=== PATIENT | male | born 1955 | race Caucasian/White ===

== ENCOUNTER 2022-03-21 11:01 | Outpatient (CLI) | payer OTHER, SELFPAY ==
[2022-03-21 21:41] LABS: Chloride* 104 mmol/L (96-114)
[2022-03-21 21:42] LABS: Sodium* 140 mmol/L (135-149)
[2022-03-21 21:44] LABS: Creatinine* 0.9 mg/dL (0.5-1.5); Estimated Glomerular Filt Rate 94 ml/min; Potassium* 4.6 mmol/L (3.6-5.1)
[2022-03-21 21:45] LABS: Blood Urea Nitrogen* 17 mg/dL (7-30); Calcium* 9.1 mg/dL (8.4-10.6); Carbon Dioxide* 29 mmol/L (20-32); Glucose* 80 mg/dL (60-115)
== END 2022-03-21 11:02 | disposition home or self-care (01) ==
LOC: LKVREF 11:02
PROVIDERS: Visit Provider Emergency Medicine
DX: Z01.818 Encounter for other preprocedural examination (principal)
CPT/HCPCS: 80048

== ENCOUNTER 2022-04-02 09:45 | Outpatient (CLI) | payer OTHER, SELFPAY | END 2022-04-02 09:46 | disposition home or self-care (01) | PROVIDERS: PCP Emergency Medicine; Visit Provider Orthopaedic Surgery | DX: Z20.822 Contact with and (suspected) exposure to COVID-19 (principal); Z01.818 Encounter for other preprocedural examination | CPT/HCPCS: 36415; 86850; 86900; 86901 ==

== ENCOUNTER 2022-04-04 07:30 | Day surgery (SDC) | payer OTHER, SELFPAY ==
[2022-04-04] VITALS (21 sets, daily range): BP systolic 98–140; BP diastolic 71–90; PULSE 57–90; RESP 14–20; TEMP 36–36.7; O2SAT 93–100; BMI 30.8
[2022-04-04] MEDS: SODIUM CHLORIDE 0.9 % (FLUSH) 10 ML SYRINGE IVF (08:45)
[2022-04-04] MEDS: LACTATED RINGERS 1000 ML 1,000 ML 100 ML IV ×2 (08:45→10:23)
[2022-04-04] MEDS: ACETAMINOPHEN 500 MG TABLET 1000 MG PO ×3 (08:55→22:01)
[2022-04-04] MEDS: CELECOXIB 200 MG CAPSULE PO ×2 (08:55→21:24)
[2022-04-04] MEDS: OXYCODONE (CR) 10 MG TAB.ER.12H PO (08:55)
[2022-04-04] MEDS: fentaNYL 100 MCG/2 ML inj IVP (09:05)
[2022-04-04] MEDS: MIDAZOLAM HCL 1 MG/ML inj IVP (09:05)
--- NOTE | 2022-04-04 09:11 | SUR.PREOP ---
TIME?OUT:?0900, right hip PT/RN/MDA?VERIFICATION?OF?SURGICAL?SITE,?PROCEDURE,?AND?CONSENT OBTAINED?PRIOR?TO?INVASIVE?PROCEDURE.
--- NOTE | 2022-04-04 09:15 | CRLHL7_ITS ---
For Patients: As a result of the Cures Act, medical imaging exams and procedure reports are released immediately into your electronic medical record. You may view this report before your referring provider. If you have questions, please contact your health care provider. Indication: Hip replacement surgery Technique: AP hip fluoroscopic images. Fluoroscopy time 47.4 seconds. Findings/Impression: Hardware from a right total hip arthroplasty is in satisfactory position. Dictated by Carlos Alberto Holly MD @ 04/04/2022 11:59:13 AM (Electronically Signed)
--- NOTE | 2022-04-04 09:33 | W.PM.NB ---
Nerve Block Nerve Block Time Seen by Provider: 09:08 Date Seen: 04/04/22 Type of block requested by surgeon for post-operative analgesia: JOE/LFCN Side: right Time out performed: Yes Verification of patient name: Yes Verification of date of : Yes Site marking: site marked Name of person performing procedure: Hollis Continuous monitoring Was continuous monitoring of O2 sat, B/P, vehicle monitor technician, recorded every 15 minutes?: Yes Procedure Checklist: sterile prep, needles and gloves Ultrasound guided. Images saved: Yes Medications given in 5ml increments after negative aspiration: Ropivicaine %: 0.5 mL: 30 Needle gauge: 20 Decadron (mg): 10 Precedex (mcg): 25 Patient tolerated procedure well: Yes Additional comments: Needle noted below psoas tendon needle noted adjacent to LFCN Block Charges Block Charge (with Pro Fee): Other Periph Nerve Block Use of Ultrasound Machine for Block: Yes- US Guidance/pain block
[2022-04-04] MEDS: TRANEXAMIC ACID 100 MG/ML INJ 1000 MG IV (09:50)
[2022-04-04] MEDS: CEFAZOLIN 2 GM INJ IVP (09:55)
--- NOTE | 2022-04-04 11:38 | CRLHL7_ITS ---
For Patients: As a result of the Cures Act, medical imaging exams and procedure reports are released immediately into your electronic medical record. You may view this report before your referring provider. If you have questions, please contact your health care provider. Indication: POST OP RIGHT ABNER Technique: AP hip centered pelvis and lateral view right hip Findings/Impression: Hardware from a right total hip arthroplasty is in satisfactory position. Bone alignment is normal. No sign of acute fracture. Postop changes are within normal limits. Dictated by Carlos Alberto Holly MD @ 04/04/2022 1:11:31 PM (Electronically Signed)
--- NOTE | 2022-04-04 11:40 | P.ORPRC_ITS ---
Procedure Note Date of procedure: 04/04/22 Procedure: PREOPERATIVE DIAGNOSIS: Right hip osteoarthritis POSTOPERATIVE DIAGNOSIS: Right hip osteoarthritis NAME OF OPERATION: Right total hip arthroplasty SURGEON: Sylvain Armendariz MD TINWARE LITHOGRAPH PRESS OPERATOR: Simran Delacruz PA-C, STEPHAN Price IMPLANTS: 1. [employer] [place] # 52 sector ingrowth cup 2. 36 x 52 +4 neutral polyethylene 3. Actis # 7 standard collared ingrowth stem 4. 36 + 1.5 ceramic femoral head ANESTHESIA: General ESTIMATED BLOOD LOSS: 300 cc COMPLICATIONS: None SPECIMENS: None DRAINS: None PREOPERATIVE ANTIBIOTICS: Ancef 2 grams INDICATIONS: The patient is a 67-year-old with a longstanding history of severe, unrelenting right hip pain secondary to end-stage right hip osteoarthritis. Despite appropriate nonoperative management, including activity modification, use of an assist device, anti-inflammatories, [id number] pain medication, physical therapy and injections, they continue to have pain and disability. Operative intervention was offered. The risks, benefits and expected outcomes were discussed in detail. These included but were not limited to: Infection, bleeding, injury to blood vessel or nerve, venous thromboembolism. All questions were answered to their satisfaction. Use of an assistant sales center manager was necessary throughout the case for patient positioning and safety, soft tissue retraction and closure. PROCEDURE: The patient was placed supine on the [place] table. General anesthesia was administered. The assistant sales center manager made sure the patient was properly positioned. The right hip was prepped and draped in the usual sterile fashion. The image intensifier was brought in for a perfect AP pelvis and a perfect double tear drop AP view of each hip which were used for intraoperative templating with our fluoroscopic guide. An oblique incision was made 3 cm distal and 3 cm lateral to the anterior super ior iliac spine. The assistant sales center manager retracted the soft tissues to protect them. Subcutaneous dissection was taken with electrocautery to the superficial fascia. The fascia was divided in line with the incision. Blunt dissection was carried medially to the tensor fascia everton and sartorius interval. Deep dissection was carried with electrocautery. The circumflex vessels were cauterized and divided. The capsule was exposed and then divided in a T-fashion, tagged with #1 Ethibond sutures. Retractors were placed in the joint, held by the assistant sales center manager. The corkscrew was placed in the femoral head. The neck cut was made in the subcapital region. We made a second neck cut more distal. The napkin ring of bone was removed. The femoral head was removed intact. Acetabular retractors were placed, held by the assistant sales center manager. The labrum was sharply debrided. The capsule was released. The 43 mm reamer was used to the true medial wall. We then enlarged in 2 mm increments using the image intensifier for our reamer placement. We impacted the cup which had excellent purchase. We placed the hole eliminator and the polyethylene. Attention was then turned to the proximal femur. The limb was placed in 140 degrees of external rotation, maximum extension and adduction. A significant amount of time was spent releasing the capsule to allow us to deliver the femur into the wound and complete the femoral side safely. Retractors were held by the assistant sales center manager throughout the femoral preparation. The estimator paperboard boxes and canal finder were used. Broaches were used to a stable size. The calcar reamer was used. Trial components were placed. The hip was reduced and was found to be stable with appropriate soft tissue tension. Length and offset had been nicely restored using the image intensifier and our fluoroscopic guide. Trial components were removed. The stem was impacted. We placed the femoral head. Again, the hip was reduced and was found to be stable with appropriate soft tissue tension. Length and offset had been nicely restored. The assistant sales center manager did a three minute dilute Betadine solution soak. The assistant sales center manager irrigated the wound with 3 liters of normal saline via pulse lavage. The assistant sales center manager repaired the anterior capsule with a #1 Vicryl and our previously placed Ethibond sutures. The assistant sales center manager closed the fascia over the tensor fascia everton with a #1 PDO Stratafix, subcutaneous tissues with 2-0 Vicryl, skin with a running 3-0 Stratafix and glue. A dry dressing was applied by the assistant sales center manager. Sponge and needle counts were correct x 2. The patient tolerated the procedure well; there were no apparent complications. They were awakened and extubated in the operating room, sent to the Post-Anesthesia Care Unit in satisfactory condition. PLAN: 1. The patient will be mobilized with physical therapy, weight-bearing as tolerates 2. Xarelto x 5 days then aspirin x 30 days will be used for DVT prophylaxis 3. The patient will be discharged once medically appropriate
[2022-04-04] MEDS: fentaNYL 100 MCG/2 ML inj 50 MCG IVP ×2 (12:12→12:24)
--- NOTE | 2022-04-04 12:15 | W.ANESCHARGE ---
Anesthesia Charges Start Date/Time Anesthesia Start Date: 04/04/22 Anesthesia Start Time: 09:45 Stop Date/Time Anesthesia Stop Date: 04/04/22 Anesthesia Stop Time: 12:11 Summary Emergency: No
[2022-04-04] MEDS: HYDROmorphone 0.5 mg/0.5 ml inj IVP ×3 (12:36→14:07)
--- NOTE | 2022-04-04 12:38 | W.ANESCHARGE ---
Anesthesia Charges Start Date/Time Anesthesia Start Date: 04/04/22 Anesthesia Start Time: 09:45 Stop Date/Time Anesthesia Stop Date: 04/04/22 Anesthesia Stop Time: 12:11 Summary Emergency: No
[2022-04-04] MEDS: OXYCODONE 5 MG TABLET PO (13:15)
--- NOTE | 2022-04-04 15:04 | PC.NURSE ---
PATIENT ARRIVED TO FLOOR AROUND 1340, ALERT AND ORIENTED, REPORTING PAIN 7/10 IN RIGHT HIP, PUPILS NOTED TO BE PIN-POINT BUT REACTIVE TO LIGHT, LET PATIENT REST FOR A BITE STATED PAIN WAS MAYBE SLIGHTLY BETTER, ABLE TO FOLLOW COMMANDS AND IS ALERT AND ORIENTED, PRN DILAUDID GIVEN WITH RELIEF, DTR AT BEDSIDE AND SUPPORTIVE, SMALL [id number] SIZE DRAINAGE NOTED ON DRESSING OUTLINED TIME AND DATED, ACTIVE ICE TO SITE, PEDAL PULSES PRESENT, TOLERATING CRACKERS AND WATER, REPORTING SOME NAUSEA, DECLINING NEED FOR MEDICATION.
[2022-04-04] MEDS: LACTATED RINGERS 1000 ML 1,000 ML 75 ML IV (16:10)
[2022-04-04] MEDS: CEFAZOLIN 2 GM in 0.9 % SODIUM CHLORIDE Mini-bag 100 ML IVPB ×2 (16:10→23:58)
--- NOTE | 2022-04-04 16:21 | PM.IMHP1 ---
Hospitalist- H&P: HPI History of Present Illness Time Seen by Provider: 16:00 Date Seen: 04/04/22 Chief complaint: 04/04/22 Right Total Hip Narrative: Armand Lund is a 67 year old male underwent an elective right total hip arthroplasty for severe osteoarthritis. He is doing well postoperatively. He tells me that when he 1st woke up from anesthesia he had quite a bit of hip pain, but he got something for that and it is much better and tolerable now. Review of Systems Status of ROS: Reports: 10 or more systems reviewed and unremarkable except as noted in History and below [facility] Medical History (Updated 04/04/22 @ 14:39 by Jsamin Hope MD) Basal cell carcinoma GERD (gastroesophageal reflux disease) Pre-op exam Testicular mass (~07/24/16) Thyroid nodule (04/20/20) Surgical History (Updated 04/04/22 @ 14:39 by Jasmin Hope MD) H/O hernia repair H/O tooth extraction (~2017) History of gastric surgery Hx of colonoscopy S/P removal of thyroid nodule (05/11/20) S/P rotator cuff repair Family History (Updated 04/04/22 @ 14:41 by Jasmin Hope MD) Father Diabetes Mother Hypothyroid COPD (chronic obstructive pulmonary disease) Sister Depression Thyroid disease Social History (Updated 04/04/22 @ 16:24 by Jasmin Hope MD) Narrative: Lifelong nonsmoker. Drinks 2-3 sixteeen oz mugs of beer 2 to 3 times a week. His last drink was last Saturday. He denies recreational drug use. Wishes to be DNR DNI. Smoking Status: Never smoker How often do you have a drink containing alcohol: 2-4 times a month Alcohol type: beer How many standard drinks containing alcohol do you have on a typical day: 3 or 4 How often do you have six or more drinks on one occasion: Less than monthly AUDIT-C Alcohol total score: 4 Non-prescribed substance use: denies use Caffeine: Yes (soda, once a day) service: Yes Meds Home Medications and Allergies Allergies Allergy/AdvReac Type Severity Reaction Status Date / Time Penicillins Allergy Unknown Swelling Verified 04/04/22 08:02 of Lip/Tongue/Throat Exam Narrative: Exam Narrative: General: No acute distress. Awake alert oriented x3. HEENT: Normocephalic atraumatic, pupils equally round and reactive to light and accommodation. Oropharynx clear. Mucous membranes are moist. No cervical lymphadenopathy, thyromegaly or carotid bruits. No JVD. Cardiovascular: Regular rate and rhythm. No murmurs, gallops, or rubs. Chest: No increased work of breathing. Clear to auscultation bilaterally. No crackles or wheezes. Abdomen: Bowel sounds present. Soft, nondistended, nontender. No hepatosplenomegaly or masses. Extremities: Right hip bandage has a 2 mm diameter size dried blood spot in the center. This had already been marked with pen by the time I examined him. No edema, no cyanosis or clubbing. Skin: No jaundice, no pallor, no rashes. Const: Vital Signs, click to edit/add: Vital Signs - 24 hr 04/04/22 08:24 04/04/22 09:05 04/04/22 09:14 Temperature 98.0 F Pulse Rate 70 70 60 Pulse Rate [Left P ulse Oximeter] Respiratory Rate 20 16 16 Blood Pressure 114/82 112/73 115/79 Blood Pressure [Ri ght Arm] Pulse Oximetry 98 95 93 Oxygen Delivery Me thod Room Air Nasal Cannula Nasal Cannula Oxygen Flow Rate 3 3 04/04/22 09:20 04/04/22 12:10 04/04/22 12:51 Temperature 96.8 F L Pulse Rate 57 L 76 75 Pulse Rate [Left P ulse Oximeter] Respiratory Rate 14 16 14 Blood Pressure 106/71 135/90 H 128/77 Blood Pressure [Ri ght Arm] Pulse Oximetry 96 96 97 Oxygen Delivery Me thod Nasal Cannula Room Air Room Air Oxygen Flow Rate 3 04/04/22 12:56 04/04/22 12:20 04/04/22 12:25 Temperature 97.3 F L Pulse Rate 75 71 69 Pulse Rate [Left P ulse Oximeter] Respiratory Rate 14 16 16 Blood Pressure 129/78 140/85 H 133/84 Blood Pressure [Ri ght Arm] Pulse Oximetry 95 96 95 Oxygen Delivery Me thod Room Air Room Air Room Air Oxygen Flow Rate 04/04/22 12:30 04/04/22 12:35 04/04/22 12:40 Temperature Pulse Rate 79 71 67 Pulse Rate [Left P ulse Oximeter] Respiratory Rate 14 14 14 Blood Pressure 133/81 137/83 130/85 Blood Pressure [Ri ght Arm] Pulse Oximetry 94 93 97 Oxygen Delivery Me thod Room Air Room Air Room Air Oxygen Flow Rate 04/04/22 12:45 04/04/22 13:00 04/04/22 13:15 Temperature 97.1 F L Pulse Rate 73 78 84 Pulse Rate [Left P ulse Oximeter] Respiratory Rate 14 14 14 Blood Pressure 132/81 126/77 126/85 Blood Pressure [Ri ght Arm] Pulse Oximetry 96 93 100 Oxygen Delivery Me thod Room Air Nasal Cannula Nasal Cannula Oxygen Flow Rate 2 2 04/04/22 13:45 04/04/22 14:00 04/04/22 14:30 Temperature 97.6 F Pulse Rate 80 Pulse Rate [Left P ulse Oximeter] 78 90 Respiratory Rate 14 14 16 Blood Pressure Blood Pressure [Ri ght Arm] 124/78 135/77 120/84 Pulse Oximetry 96 98 Oxygen Delivery Me thod Nasal Cannula Nasal Cannula Nasal Cannula Oxygen Flow Rate 2 2 2 04/04/22 15:00 Temperature 97.8 F Pulse Rate Pulse Rate [Left P ulse Oximeter] 79 Respiratory Rate 16 Blood Pressure Blood Pressure [Ri ght Arm] Pulse Oximetry 99 Oxygen Delivery Me thod Nasal Cannula Oxygen Flow Rate 2
--- NOTE | 2022-04-04 16:27 | P.IMCN_ITS ---
Date of Consult Patient: Other Consult date: 04/04/22 Requesting Physician: Orthopedics Primary Care Provider: Livia Eli Consult Narrative Reason for consult: GERD Narrative: Armand Lund is a 67 year old male underwent an elective right total hip arthroplasty for severe osteoarthritis. He is doing well postoperatively. He tells me that when he 1st woke up from anesthesia he had quite a bit of hip pain, but he got something for that and it is much better and tolerable now. Review of Systems Status of ROS: Reports: 10 or more systems reviewed and unremarkable except as noted in History and below [facility] Medical History (Updated 04/04/22 @ 16:31 by Jasmin Hope MD) Basal cell carcinoma GERD (gastroesophageal reflux disease) Pre-op exam Testicular mass (~07/24/16) Thyroid nodule (04/20/20) Surgical History (Updated 04/04/22 @ 16:30 by Jasmin Hope MD) H/O hernia repair H/O tooth extraction (~2017) History of gastric surgery Hx of colonoscopy S/P removal of thyroid nodule (05/11/20) S/P rotator cuff repair S/P total right hip arthroplasty (04/04/22) Family History (Updated 04/04/22 @ 14:41 by Jasmin Hope MD) Father Diabetes Mother Hypothyroid COPD (chronic obstructive pulmonary disease) Sister Depression Thyroid disease Social History (Updated 04/04/22 @ 16:24 by Jasmin Hope MD) Narrative: Lifelong nonsmoker. Drinks 2-3 sixteeen oz mugs of beer 2 to 3 times a week. His last drink was last Saturday. He denies recreational drug use. Wishes to be DNR DNI. Smoking Status: Never smoker How often do you have a drink containing alcohol: 2-4 times a month Alcohol type: beer How many standard drinks containing alcohol do you have on a typical day: 3 or 4 How often do you have six or more drinks on one occasion: Less than monthly AUDIT-C Alcohol total score: 4 Non-prescribed substance use: denies use Caffeine: Yes (soda, once a day) service: Yes Meds Home Medications and Allergies Allergies Allergy/AdvReac Type Severity Reaction Status Date / Time Penicillins Allergy Unknown Swelling Verified 04/04/22 08:02 of Lip/Tongue/Throat Exam Narrative: Exam Narrative: General: No acute distress. Awake alert oriented x3. HEENT: Normocephalic atraumatic, pupils equally round and reactive to light and accommodation. Oropharynx clear. Mucous membranes are moist. No cervical lymphadenopathy, thyromegaly or carotid bruits. No JVD. Cardiovascular: Regular rate and rhythm. No murmurs, gallops, or rubs. Chest: No increased work of breathing. Clear to auscultation bilaterally. No crackles or wheezes. Abdomen: Bowel sounds present. Soft, nondistended, nontender. No hepatosplenomegaly or masses. Extremities: Right hip bandage has a 2 mm diameter size dried blood spot in the center. This had already been marked with pen by the time I examined him. No edema, no cyanosis or clubbing. Skin: No jaundice, no pallor, no rashes. Const: Vital Signs, click to edit/add: Vital Signs - 24 hr 04/04/22 08:24 04/04/22 09:05 04/04/22 09:14 Temperature 98.0 F Pulse Rate 70 70 60 Pulse Rate [Left P ulse Oximeter] Respiratory Rate 20 16 16 Blood Pressure 114/82 112/73 115/79 Blood Pressure [Ri ght Arm] Pulse Oximetry 98 95 93 Oxygen Delivery Me thod Room Air Nasal Cannula Nasal Cannula Oxygen Flow Rate 3 3 04/04/22 09:20 04/04/22 12:10 04/04/22 12:51 Temperature 96.8 F L Pulse Rate 57 L 76 75 Pulse Rate [Left P ulse Oximeter] Respiratory Rate 14 16 14 Blood Pressure 106/71 135/90 H 128/77 Blood Pressure [Ri ght Arm] Pulse Oximetry 96 96 97 Oxygen Delivery Me thod Nasal Cannula Room Air Room Air Oxygen Flow Rate 3 04/04/22 12:56 04/04/22 12:20 04/04/22 12:25 Temperature 97.3 F L Pulse Rate 75 71 69 Pulse Rate [Left P ulse Oximeter] Respiratory Rate 14 16 16 Blood Pressure 129/78 140/85 H 133/84 Blood Pressure [Ri ght Arm] Pulse Oximetry 95 96 95 Oxygen Delivery Me thod Room Air Room Air Room Air Oxygen Flow Rate 04/04/22 12:30 04/04/22 12:35 04/04/22 12:40 Temperature Pulse Rate 79 71 67 Pulse Rate [Left P ulse Oximeter] Respiratory Rate 14 14 14 Blood Pressure 133/81 137/83 130/85 Blood Pressure [Ri ght Arm] Pulse Oximetry 94 93 97 Oxygen Delivery Me thod Room Air Room Air Room Air Oxygen Flow Rate 04/04/22 12:45 04/04/22 13:00 04/04/22 13:15 Temperature 97.1 F L Pulse Rate 73 78 84 Pulse Rate [Left P ulse Oximeter] Respiratory Rate 14 14 14 Blood Pressure 132/81 126/77 126/85 Blood Pressure [Ri ght Arm] Pulse Oximetry 96 93 100 Oxygen Delivery Me thod Room Air Nasal Cannula Nasal Cannula Oxygen Flow Rate 2 2 04/04/22 13:45 04/04/22 14:00 04/04/22 14:30 Temperature 97.6 F Pulse Rate 80 Pulse Rate [Left P ulse Oximeter] 78 90 Respiratory Rate 14 14 16 Blood Pressure Blood Pressure [Ri ght Arm] 124/78 135/77 120/84 Pulse Oximetry 96 98 Oxygen Delivery Me thod Nasal Cannula Nasal Cannula Nasal Cannula Oxygen Flow Rate 2 2 2 04/04/22 15:00 Temperature 97.8 F Pulse Rate Pulse Rate [Left P ulse Oximeter] 79 Respiratory Rate 16 Blood Pressure Blood Pressure [Ri ght Arm] Pulse Oximetry 99 Oxygen Delivery Me thod Nasal Cannula Oxygen Flow Rate 2 Documenting provider has reviewed patient's vital signs: yes Labs Labs: Ordering Physician: Sylvain Armendariz M.D. Date of Service: 04/04/22 Procedure(s): XR hip RT 1V Accession Number(s): [id number] cc: Sylvain Armendariz M.D.; Livia Eli M.D.~ For Patients: As a result of the Century Cures Act, medical imaging exams and procedure reports are released immediately into your electronic medical record. You may view this report before your referring provider. If you have questions, please contact your health care provider. Indication: Hip replacement surgery Technique: AP hip fluoroscopic images. Fluoroscopy time 47.4 seconds. Findings/Impression: Hardware from a right total hip arthroplasty is in satisfactory position. Dictated by Carlos Alberto Holly MD @ 04/04/2022 11:59:13 AM (Electronically Signed) Ordering Physician: Sylvain Armendariz M.D. Date of Service: 04/04/22 Procedure(s): XR hip RT post op Accession Number(s): [id number] cc: Sylvain Armendariz M.D.; Livia Eli M.D.~ For Patients: As a result of the Cures Act, medical imaging exams and procedure reports are released immediately into your electronic medical record. You may view this report before your referring provider. If you have questions, please contact your health care provider. Indication: POST OP RIGHT ABENR Technique: AP hip centered pelvis and lateral view right hip Findings/Impression: Hardware from a right total hip arthroplasty is in satisfactory position. Bone alignment is normal. No sign of acute fracture. Postop changes are within normal limits. Dictated by Carlos Alberto Holly MD @ 04/04/2022 1:11:31 PM (Electronically Signed) Assessment and Plan Assessment and plan (1) S/P total right hip arthroplasty: Status: Acute (2) Osteoarthritis of right hip: Problem comment: End-stage Status: Acute (3) Prediabetes: Problem comment: Does not take any medications for this. Status: Chronic (4) GERD (gastroesophageal reflux disease): Status: Chronic Plan 59-year-old male who underwent an elective right total hip arthroplasty today. He is doing well postoperatively. Conditions of prediabetes and GERD are stable and he takes no medications as an outpatient. Recommend usual VTE prophylaxis of 5 days of Xarelto followed by twice a day baby aspirin. Thank you for the consult.
[2022-04-04] MEDS: 0.9 % SODIUM CHLORIDE 500 ML IV (17:50)
[2022-04-04] MEDS: ONDANSETRON 2 MG/ML inj 4 MG IVP (18:39)
[2022-04-04] MEDS: SENNOSIDES 1 TAB TABLET 2 TAB PO (21:24)
--- NOTE | 2022-04-04 22:53 | PC.NURSE ---
Shift note: Pt is doing well post operatively. Able to ambulate with assist of 1 to and from BR with walker and GB. Tolerating regular diet very well without any complication. Pain was not able to make urine 4 hours after admission to the unit, N/S 500ml bolus given, charge-nurse informed. Did complained of dizziness and and nausea the first time he ambulated to and from the BR. This was effectively managed with rest and Ondansetron. Pt eventually produced 350 ml of clear carla colored urine. Pt is able to tolerate pain very well. Pain level has been rated at 2 and refused PRN pain medications. Scheduled pain med given. Dressing appears clean and dry. CMS to the right leg intact. Pt is able to wiggle toes and slowly move the right leg.
[2022-04-05 03:00] VITALS: BP 108/67; PULSE 73; RESP 18; TEMP 36.6; O2SAT 100
[2022-04-05] MEDS: ACETAMINOPHEN 500 MG TABLET 1000 MG PO ×2 (03:39→10:49)
[2022-04-05] MEDS: OXYCODONE 5 MG TABLET PO ×3 (03:40→08:24)
--- NOTE | 2022-04-05 05:03 | PC.NURSE ---
[id number] Pt rested well during night, up to br with walker, GB, SBA, tolerated very well. pain controlled with oral schedules and prn medications. Ice to R hip throughout shift. antonia N/V, chest pain, headache or sob.
[2022-04-05 07:00] VITALS: BP 112/69; PULSE 82; RESP 18; TEMP 36.9; O2SAT 99
[2022-04-05 07:02] LABS: Basophils Absolute Auto 0.01 K/uL (0.00-0.30); Basophils Percent Auto 0.1 % (0.0-3.0); Hematocrit 35.9 % (37.0-53.0); Hemoglobin* 12.4 gm/dL (13.5-17.5); Immature Granulocytes Abs Auto 0.01 K/uL (0.00-0.30); Immature Granulocytes Pct Auto 0.1 %; Lymphocytes Percent Auto 14.3 % (20-44); Mean Corpuscular HGB Conc 35 gm/dL (32-36); Mean Corpuscular Hemoglobin 33 pg (26-34); Mean Corpuscular Volume 94 fL (80-100); Monocytes Percent Auto 10.5 % (0.0-11.0); Platelet Count* 190 K/uL (140-440); RDW Coefficient of Variation % 11.9 % (11.5-15.5); Red Blood Count 3.82 m/uL (4.30-5.90); White Blood Count* 10.58 K/uL (4.50-11.00)
[2022-04-05 07:15] LABS: Potassium* 4.3 mmol/L (3.6-5.1); Sodium* 136 mmol/L (135-149)
[2022-04-05 07:18] LABS: Creatinine* 0.8 mg/dL (0.5-1.5); Estimated Glomerular Filt Rate 96 ml/min
[2022-04-05 07:19] LABS: Blood Urea Nitrogen* 15 mg/dL (7-30)
[2022-04-05 07:23] LABS: Slide Review Reflex No
[2022-04-05] MEDS: CEFAZOLIN 2 GM in 0.9 % SODIUM CHLORIDE Mini-bag 100 ML IVPB (07:43)
--- NOTE | 2022-04-05 08:12 | PM.ORPN ---
Subjective Subjective Time Seen by Provider: 07:40 Date Seen: 04/05/22 Principal diagnosis: Status post right hip replacement Interval history: Armand is comfortable this morning. He states his pain is much improved in comparison to prior to surgery. He states the hip is sore. He has had a vomiting episode. Ortho Exam Narrative Exam Narrative: Alert and oriented x3. Patient is in no acute distress. Converses without labored breathing. Hearing is grossly intact. Emanation of the right hip shows mild erythema from the ice pack. Mild soft tissue edema right hip and back. Good quad function. CMS intact right lower extremity. Bilateral calves are soft and nontender. Const Vital Signs, click to edit/add: Vital Signs - 24 hr 04/04/22 08:24 04/04/22 09:05 04/04/22 09:14 Temperature 98.0 F Pulse Rate 70 70 60 Pulse Rate [Left Pulse Oximeter] Pulse Rate [Pulse Oximeter] Respiratory Rate 20 16 16 Blood Pressure 114/82 112/73 115/79 Blood Pressure [Right Arm] Pulse Oximetry 98 95 93 Oxygen Delivery Method Room Air Nasal Cannula Nasal Cannula Oxygen Flow Rate 3 3 04/04/22 09:20 04/04/22 12:10 04/04/22 12:51 Temperature 96.8 F L Pulse Rate 57 L 76 75 Pulse Rate [Left Pulse Oximeter] Pulse Rate [Pulse Oximeter] Respiratory Rate 14 16 14 Blood Pressure 106/71 135/90 H 128/77 Blood Pressure [Right Arm] Pulse Oximetry 96 96 97 Oxygen Delivery Method Nasal Cannula Room Air Room Air Oxygen Flow Rate 3 04/04/22 12:56 04/04/22 12:20 04/04/22 12:25 Temperature 97.3 F L Pulse Rate 75 71 69 Pulse Rate [Left Pulse Oximeter] Pulse Rate [Pulse Oximeter] Respiratory Rate 14 16 16 Blood Pressure 129/78 140/85 H 133/84 Blood Pressure [Right Arm] Pulse Oximetry 95 96 95 Oxygen Delivery Method Room Air Room Air Room Air Oxygen Flow Rate 04/04/22 12:30 04/04/22 12:35 04/04/22 12:40 Temperature Pulse Rate 79 71 67 Pulse Rate [Left Pulse Oximeter] Pulse Rate [Pulse Oximeter] Respiratory Rate 14 14 14 Blood Pressure 133/81 137/83 130/85 Blood Pressure [Right Arm] Pulse Oximetry 94 93 97 Oxygen Delivery Method Room Air Room Air Room Air Oxygen Flow Rate 04/04/22 12:45 04/04/22 13:00 04/04/22 13:15 Temperature 97.1 F L Pulse Rate 73 78 84 Pulse Rate [Left Pulse Oximeter] Pulse Rate [Pulse Oximeter] Respiratory Rate 14 14 14 Blood Pressure 132/81 126/77 126/85 Blood Pressure [Right Arm] Pulse Oximetry 96 93 100 Oxygen Delivery Method Room Air Nasal Cannula Nasal Cannula Oxygen Flow Rate 2 2 04/04/22 13:45 04/04/22 14:00 04/04/22 14:30 Temperature 97.6 F Pulse Rate 80 Pulse Rate [Left Pulse Oximeter] 78 90 Pulse Rate [Pulse Oximeter] Respiratory Rate 14 14 16 Blood Pressure Blood Pressure [Right Arm] 124/78 135/77 120/84 Pulse Oximetry 96 98 Oxygen Delivery Method Nasal Cannula Nasal Cannula Nasal Cannula Oxygen Flow Rate 2 2 2 04/04/22 15:00 04/04/22 19:00 04/04/22 23:00 Temperature 97.8 F 97.5 F L 97.9 F Pulse Rate Pulse Rate [Left Pulse Oximeter] 79 81 85 Pulse Rate [Pulse Oximeter] Respiratory Rate 16 16 16 Blood Pressure Blood Pressure [Right Arm] 106/73 98/71 Pulse Oximetry 99 99 96 Oxygen Delivery Method Nasal Cannula Nasal Cannula Room Air Oxygen Flow Rate 2 0 04/05/22 03:00 Temperature 97.9 F Pulse Rate Pulse Rate [Left Pulse Oximeter] Pulse Rate [Pulse Oximeter] 73 Respiratory Rate 18 Blood Pressure Blood Pressure [Right Arm] 108/67 Pulse Oximetry 100 Oxygen Delivery Method Room Air Oxygen Flow Rate 0 Assessment and Plan Assessment and plan (1) S/P total right hip arthroplasty: Problem details: 04/04/2022 Status: Acute Assessment and Plan: Plan for discharge is today to home if they meet discharge criteria. DVT prophylaxis includes Xarelto 10 mg daily for total of 5 days, then aspirin 81 mg twice daily for 30 days, Nilesh stockings x1 month may remove for 1 hr per day, frequent ambulation Remove dressing 1 week. Observe wound and phone Orthopedics with any questions or concerns Use Ice on operative hip unrestricted. Return to clinic in 1 week with PA for a wound check Return to clinic in [address] Armendariz Minimize narcotic use. Wean off and discontinue soon as possible. Activities as tolerated. No strenuous activity. Attend outpt PT (2) Osteoarthritis of right hip: Problem details: End-stage Status: Acute (3) Prediabetes: Problem details: Does not take any medications for this. Status: Chronic (4) GERD (gastroesophageal reflux disease): Status: Chronic
[2022-04-05] MEDS: CELECOXIB 200 MG CAPSULE PO (08:23)
[2022-04-05] MEDS: SENNOSIDES 1 TAB TABLET 2 TAB PO (08:23)
[2022-04-05] MEDS: RIVAROXABAN 10 MG TABLET PO (08:24)
--- NOTE | 2022-04-05 11:25 | PC.NURSE ---
PATIENT DISCHARGED TO HOME WITH DTR, UP SBA WITH WALKER AND BELT TOLERATING WELL, RATING PAIN IN RIGHT HIP / BEING MANAGED WITH SCHEDULED TYLENOL AND PRN OXYCODONE, NAUSEA WITH EMESIS NOTED THIS MORNING, PATIENT DECLINED NEED FOR INTERVENTION I FEEL BETTER AFTER THROWING UP, HAS SINCE HAD NO NAUSEA OR EMESIS, TOLERATING REGULAR DIET, DRESSING TO RIGHT HIP INTACT WITH OLD DRAINAGE, PATIENT AND DTR VERBALIZED UNDERSTANDING OF DISCHARGE INFORMATION AND HAD NO FURTHER QUESTIONS AT THIS TIME, IV REMOVED, ALL BELONGINGS SENT WITH PATIENT, PATIENT LEFT VIA WHEELCHAIR AROUND 1115.
== END 2022-04-05 11:15 | disposition home or self-care (01) ==
LOC: OR 07:32 → MEDSURG 07:48
PROVIDERS: PCP Emergency Medicine; Visit Provider Orthopaedic Surgery
PROC: (CPT 27130; principal; 2022-04-04 09:15)
DX: M16.11 Unilateral primary osteoarthritis, right hip (principal); M25.551 Pain in right hip; R73.03 Prediabetes; K21.9 Gastro-esophageal reflux disease without esophagitis
CPT/HCPCS: 27130; 01214; 36415; 64450; 73501; 76000; 76942; 82565; 84132; 84295; 84520; 85025; 97116; 97161; 97165; 97535; A9270; C1776; J0690; J1100; J1170; J2250; J2405; J2704; J2710; J2795; J3010; J7120

== ENCOUNTER 2022-05-03 10:30 | Outpatient (RCR) | payer OTHER, SELFPAY ==
--- NOTE | 2022-03-27 13:21 | PT.OPE ---
PT Gene Outpatient Eval PT [facility]K Outpatient Eval Start: 03/27/22 10:05 Freq: Status: Active Protocol: Document 03/27/22 12:54 KN (Rec: 03/27/22 13:17 GER Desktop) E-signed By Ant Alba, PT, ATC Physical Therapy Outpatient Evaluation Insurance Information Insurance Name Other; See Comments Insurance Information/Comments Medicare Advantage [employer] Medical Diagnosis M16.11 Unilateral primary osteoarthritis , right hip Treating Diagnosis R hip pain Referring MD Armendariz Subjective Subjective Chronic history of R hip pain and reduced mobility. Two previous cortisone shots attempted, most recent . Zero relief from the last injection. Pain inhibits ability for walking distances > 500 feet, sustained standing > 10 min.s or sitting > 30 min.s. Scheduled for R ABNER- anterior approach 04/04/22. Lives by himself in a split entry home. Has his children available to provide assistance following the surgery. Pain Comments -12/16 most of the time Date of Last Physician Visit 02/28/22 Current Work Status Employment Specialist/Program Manager Occupation frontload driver Precautions Weight Bearing Status Full Weight Bearing Therapy Limitations/Systems Review Not Limited Objective Range of Motion PROM: FLEX R 45, L 50 ABD R 15, L 20 EXT R 5, L 10 ER R 30, L 40 IR R 10, L 20 Strength R hip 4-/5 L hip 5-/5 Balance & Gait Gait pattern exhibits an extreme limp with decreased WB 'ing time and stride length through the R leg. Absent hip or trunk rotation and minimal UE swing Posture Asymmetric standing posture, increased weight through L leg . Assessment Assessment/Impression Partick is a pleasant 66 year old male referred to PT today for a pre-op ABNER evaluation. The surgery is scheduled for 04/04/22 and he appears prepared for the event. He comprehended and demonstrated good ability with the ABNER ex.s , was able to walk safely and correctly using the wheeled walker and used correct sequencing with stair ascent and descent. Primary Functional Limitations Standing, walking, sitting, transfers, sleeping Plan of Care Rehabilitation Potential Good Physical Therapy Goals 1. To demonstrate correct performance with ABNER-anterior approach exercises for active range and strengthening. 2. To demonstarte safe and correct utilization of front wheeled walker. 3. Correct sequencing with stair ascent and descent. Coordination/Communication With Referral Source Treatment Plan/Direct Interventions Therapeutic Exercises Frequency/Duration One pre-op visit. Re-evaluation following ABNER-R and post op POC development. 1 -2x per week for 6-8 weeks Patient Will Be Discharged From Therapy Independent w/HEP, Independently Progressing Evaluation Billing Untimed Code Treatment Minutes 30 PT Eval No Charge No Complexity Low Certification Information Initial Certification Date 03/27/22 Ending Certification Date 06/25/22 Provider Signature Shows Agreement With POC & Medical Necessity Physician Signature & Date Requested Please Sign/Date Here Physician Comment/Change : Physician NPI Number #
== END 2022-10-25 23:59 | disposition home or self-care (01) ==
PROVIDERS: Visit Provider Physician Assistant
DX: M16.11 Unilateral primary osteoarthritis, right hip (principal); Z96.649 Presence of unspecified artificial hip joint; M25.551 Pain in right hip; Z51.89 Encounter for other specified aftercare
CPT/HCPCS: 97012; 97110; 97140; 97161; 97164; 97530

== ENCOUNTER 2022-07-18 10:50 | Outpatient (CLI) | payer OTHER, SELFPAY | END 2022-07-18 10:51 | disposition home or self-care (01) | LOC: NFLDREF 07-20 00:29 | PROVIDERS: PCP Emergency Medicine; Referring Provider Emergency Medicine; Visit Provider Emergency Medicine | DX: Z00.00 Encounter for general adult medical examination without abnormal findings (principal); R73.03 Prediabetes; Z12.5 Encounter for screening for malignant neoplasm of prostate; Z13.6 Encounter for screening for cardiovascular disorders | CPT/HCPCS: 80053; 80061; 84153 ==

== ENCOUNTER 2023-09-19 08:46 | Outpatient (CLI) | payer OTHER, SELFPAY | END 2023-09-19 08:47 | disposition home or self-care (01) | PROVIDERS: PCP Emergency Medicine; Visit Provider Emergency Medicine | DX: R73.03 Prediabetes (principal); Z12.5 Encounter for screening for malignant neoplasm of prostate; Z68.33 Body mass index [BMI] 33.0-33.9, adult | CPT/HCPCS: 80048; 84443; G0103 ==

== ENCOUNTER 2024-09-24 09:53 | Outpatient (CLI) | payer OTHER, SELFPAY ==
--- OUTSIDE RECORDS SUMMARY | 2023-01-23 03:31 | XMS_ITS | Continuity of Care Document ---
Author Organization [facility] Address [address] [address] [place] [address] Phone Care Team Providers Care Rail Detector Car Operator Name Role Phone Davian Yoder CRNA Unavailable Unavailabl e Allergies, Adverse Reactions, Alerts Substance Reaction Status Criticality Penicillins Swelling Active No Information PENICILLIN Angioedema Resolved No Information Medications Medication Instructions Dosage Effective Dates (start - stop) Status Comments pantoprazole 40 mg tablet,delayed release take 1 tablet by ORAL route 2 times every day 40 MG - No Longer Active office visit for refills naproxen 500 mg tablet take 1 tablet by oral route 2 times every day with food 500 MG - No Longer Active cyclobenzaprine 10 mg tablet take 1 tablet by oral route 3 times every day 10 MG - No Longer Active Procedures Procedure Date Colonoscopy Flex; W/bx 1/mx Level Iv-surg Path Gross/micro 23 Ugi Endo; W/bx 1/mx Level Iv-surg Path Gross/micro 20 Virtual Visit E&m Estab Low-mod - Mi n Offic/outpt E&m Estab Mod-hi 2 18 Colonoscopy Flex; Dx (sep Pro) 18 Ugi Endo; W/bx 1/mx Level Iv-surg Path Gross/micro 18 Ugi Endo; W/bx 1/mx Level Iv-surg Path Gross/micro 18 Ugi Endo; W/bx 1/mx Colonosocpy Flex; Remov L Ugi Endo; Dx W/wo Collec Advance Directives Directive Yes / No Effective Date File Name No Information Encounters Encounter Description Practice Location Reason(s) For Visit Diagnoses Date Provider Providers Copied on Encounter [facility], [address] [address], [place], [id number], [place] tel:[phone] [facility] No Information 3 Paresh Marcelo. [address] [facility], [address], [id number], [place]. tel:[phone] Referring Provider: Rocio Villalobos, [address], [address]. tel:[phone] [facility], [address] [address], [place], [id number], [place] tel:[phone] [facility] GI Symptoms or Concerns (chief complaint) Screening ColonoscopyCo lorectal polypsDiverti cula of colonBenign neoplasm of transverse colonPersonal history of colonic polypsEncount er for screening for malignant neoplasm of colonDvrtclos of lg int w/o perforation or abscess w/o bleeding 3 Didier Chan. [address] [facility], [facility] [address], [place], [id number], [place]. tel:[phone] Referring Provider: Referral Self, USE FOR SELF REFERRALS. [facility], [address] [address], [place], [id number], [place] tel:[phone] [facility] No Information 3 Bakari Whittaker. [address] [facility], [facility] [address], [place], [id number], [place]. tel:[phone] [facility], [address] [address], [place], [id number], [place] tel:[phone] [facility] No Information 1 Jessica Matute. [address] [place] [address], [id number], . tel:[phone] [facility], [address] [address], [place], [id number], [place] tel:[phone] [facility] Diaphragmatic hernia without obstruction or gangreneGastr o-esophageal reflux disease without esophagitisOt her specified postprocedura l statesGastro- esophageal reflux disease with esophagitisGa stro-esophage al reflux disease with esophagitisDi aphragmatic hernia without obstruction or gangrene 0 Edinson Duncan. [address] [place] [address], [id number], [place]. tel:[phone] Referring Provider: Referral Self, USE FOR SELF REFERRALS. Virtual Visit E&m Estab Low-mod 15-24 Min [facility], [address] [address], [place], [id number], [place] tel:[phone] [facility] Gastroesophag eal reflux disease, esophagitis presence not specified 0 Jessica Matute. [address] [place] [address], [id number], [place]. tel:[phone] Referring Provider: Referral Self, USE FOR SELF REFERRALS. [facility], [address] [address], [place], [id number], [place] tel:[phone] [facility] No Information 0 Edstrom ABEL Conner. [address] [place] [address], [id number], [place]. tel:[phone] Offic/outpt E&m Estab Mod-hi 2 [facility], [address] [address], [place], [id number], [place] tel:[phone] [facility] GI Symptoms or Concerns (chief complaint) GERD with esophagitisHi story of Sandi fundoplicatio nHiatal hernia 8 No Information Referring Provider: Referral Self, USE FOR SELF REFERRALS. [facility], [address] [address], [place], [id number], [place] tel:[phone] [facility] GERD with esophagitisEs ophagitisScre ening ColonoscopyPe rsonal history of colonic polypsEsophag eal obstructionEn counter for screening for malignant neoplasm of colon 8 Stephen Hunt. [address] [facility], [facility] [address], [place], [place], [id number], [place]. tel:[phone] Referring Provider: Referral Self, USE FOR SELF REFERRALS. [facility], [address] [address], [place], [id number], [place] tel:[phone] [facility] Reflux esophagitisHi atal herniaHistory of Sandi fundoplicatio nGastro-esoph ageal reflux disease with esophagitisOt her specified postprocedura l statesDiaphra gmatic hernia without obstruction or gangrene 8 Jefe Lucero. [address] [facility], [facility] [address], [place], [place], [id number], [place]. tel:[phone] Referring Provider: Jeannie Mcleod, [address], [place], [address]. tel:[phone] [facility], [address] [address], [place], [id number], [place] tel:[phone] [facility] Gastroesophag eal Reflux 8200 6 No Information [facility], [address] [address], [place], [id number], [place] tel:[phone] [facility] 6200 6 No Information Family History Family Member Type Diagnosis Age At Onset Father Problem (finding) Mother Problem (finding) Sister Problem (finding) Thyroid disorder Mother Problem (finding) Thyroid disorder Daughter Problem (finding) Alive and well Son Problem (finding) GERD Mother Problem (finding) alcoholism Brother Problem (finding) Alive and well Immunizations Vaccine Date Status Comments tetanus toxoid, reduced diphtheria toxoid, and acellular pertussis vaccine, adsorbed administered Note: [facility] b i-directional interface ; Source: Other Registry Pneumococcal conjugate vacci ne 20-valent (PCV20), polysaccharide [id number] conjugate, adjuvant, preservative free administered Note: [facility] bi-direct ional interface ; Source: Other Registry SARS-COV-2 (COVID-19) vaccin e, mRNA, spike protein, LNP, preservative free, 100 mcg/0.5mL dose or 50 mcg/0.25mL dose administered Note: [facility] bi -directional interface ; Source: Other Registry SARS-COV-2 (COVID-19) vaccin e, mRNA, spike protein, LNP, preservative free, 100 mcg/0.5mL dose or 50 mcg/0.25mL dose administered Note: [facility] bi -directional interface ; Source: Other Registry influenza, high-dose seasona l, quadrivalent, 0.7mL dose, preservative free administered Note: [facility] bi-direct ional interface ; Source: Other Registry tetanus toxoid, reduced diphtheria toxoid, and acellular pertussis vaccine, adsorbed administered Note: [facility] b i-directional interface ; Source: Other Registry Payers Payer name Insurance type Covered green party ID Authoriza tion(s) Cici Conrad Choice 16 [id number] Social History Type Description Quantity Date Captured Comments Sex Male Smoking Status No Information Chief Complaint And Reason For Visit No Information Reason For Referral Reason For Referral No Information Plan Of Treatment Date Type Action Status Referral Ordered: Xray Esophagus (Barium Swallow Study) Appointment date/timeframe: 02/21/2018 ordered Referral Ordered: referred to Dr Rogelio Alba or Dr Bozena Hunter GERD, previous sandi, hiatal hernia Appointment date/timeframe: 03/12/2018 ordered Referral Ordered: follow-up visit with esophageal clinic or my clinic ordered Referral Ordered: EGD Appointment date/timeframe: 12/18/2017 ordered History Of Present Illness Encounter Date Complaint History Of Prese nt Illness GI Symptoms or Concerns GI Symptoms or Concerns Armand Lund is a 62-year-old male who presents to clinic today to follow up from repeat endoscopies. The patient has a history of gastroesophageal reflux disease and underwent a Sandi fundoplication in [place] in 2013. We had seen the patient back in November 2005 for evaluation of heartburn. Two tongues of possible Barfield's were seen at that time, but the stomach and duodenum were normal appearing. Biopsies of the esophagus revealed squamous epithelium with mild reactive epithelial changes and cardiac-type glandular mucosa, but not goblet cells or Barfield's esophagus was seen.The patient returned for an upper endoscopy in October 2017. At that time, he had been experiencing more heartburn [id number] of the last 6 months.The patient states that he had his Sandi performed in [place] because of progressive nocturnal regurgitation. This completely resolved after the Sandi and he was able to be off of all PPI medications. He did well for about 2 years, bu Functional Status Date Functional Assessmen t No Information Medications Administered Medication Instructions Dosage Effective Dates (start - stop) Status Comments No Drug Therapy Prescribed Instructions Date Instruction Additional Infor mation Diverticulosis/Diverticulitis Re lated to Colorectal polyps Colon Polyps Related to Color ectal polyps Hemorrhoids Related to Color ectal polyps High Fiber Diet Related to Color ectal polyps Gastroesophageal Reflux Disease Related to GERD with esophagitis Hiatal Hernia Related to GERD with esophagitis Colon Cancer Prevention Related to Esophagitis Diverticulosis/Diverticulitis Re lated to Esophagitis Hemorrhoids Related to Esoph agitis Assessments Type Assessment Date No Information Patient Care Teams Name Effective Dates (start - stop) Status Members No Information
[2024-09-24 10:43] VITALS: BP 136/76; PULSE 93; RESP 16
--- NOTE | 2024-09-24 12:05 | W.PM.STED ---
Stress Test Note Date Date Seen: 09/24/24 Date of test: 09/24/24 Providers Primary care provider: Vazquez Gant Stress test physician: Leena Becerra Stress Test Note Stress test ordered: Exercise Stress Test Indication for test: Dyspnea Results discussion: Resting EKG: Sinus rhythm, 72 beats per minute. Isolated flipped T-waves lead V1 and lead [address] segment changes. Resting blood pressure: 120/82 Stress test: Patient consented on standard [place] protocol exercise treadmill stress test. Patient was able to exercised to 9 minutes 29 seconds stopping due to being short of breath/meeting exercise tolerance and achieving appropriate heart rate. Patient exercised equivalent of 10.9 Mets. Had a maximum heart rate of 154 beats per minute which was 120% of a calculated target heart rate of 128. He had a rate pressure product of 23,408. There was no arrhythmia, no diagnostic EKG changes indicative of ischemia. Patient had appropriate heart rate recovery, did not seem to be dyspneic outside anticipated level of exercise. Impression: Subjectively negative, objectively negative treadmill stress test. Follow up suggested: Patient is discharged to home, he will follow up with his primary to discuss further options or workup.
--- OUTSIDE RECORDS SUMMARY | 2024-09-25 00:58 | XMS_ITS | Encounter Summary ---
Author Organization [facility] Address [address] [place] [address]. [place] [address] Care Team Providers Care Automatic Vulcanizing Operator Name Role Phone Leslie James MD Unavailable [phone] Wendy Ariza APRN BREEDING TECHNICIAN Unavailable [phone] Wendy Ariza APRN BREEDING TECHNICIAN Primary Care Provider + Coming Lauren Granados MD Unavailable [phone] Coming Lauren Granados MD Unavailable [phone] Wendy Ariza APRN BREEDING TECHNICIAN Unavailable Coming Lauren Granados MD Unavailable [phone] Reason for Visit * Reason Onset Date Comments Refill Request 10/05/2020 Encounter Details Date Type Department Care Team (Late st Contact Info) Description 10/05/2020 MyC Refill [facility] [address] [place] [phone] [place] [address] [place], [place] [id number] Refill Request Social History Tobacco Use Types Packs/Day Years Used Date Smoking Tobacco: Never Smokeless Tobacco: Never Alcohol Use Standard Drinks/Week Comments Yes 2 (1 standard drink = 0.6 oz pur e alcohol) 2-3 beers weekly. varies AUDIT-C Answer Date Recorded Q1: How often do you have a drink containing alc ohol? 2-4 times a month 12/17/2018 Q2: How many drinks containi ng alcohol do you have on a typical day when you are drinking? 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 No / Unsure 09/12/2020 4:11 PM CDT documented as of this encounter Miscellaneous Notes * Telephone Encounter - Wendy Ariza APRN CNP - 10/06/2020 8:56 AM CDT Looks like you saw patient for this. Thank you Wendy Ariza APRN CNP on 10/06/2020 at 8:56 AM * Telephone Encounter - Tracey Ramires RN - 10/05/2020 2:53 PM CDT Routing refill request to provider for review/approval because: Drug not on the [facility] refill protocol Tracey Ramires RN [facility] -- Triage Nurse documented in this encounter Plan of Treatment Not on file documented as of this encounter Visit Diagnoses Diagnosis Pulled muscle Unspecified site of sprain and strain documented in this encounter Care Teams Automatic Vulcanizing Operator Relationship Specialty Start Date End Date Wendy Ariza APRN BREEDING TECHNICIAN [address] [place] [id number] PCP - General Family Medicine 07/06/20 Leslie James MD [facility] [address] [place] [address] Assigned Surgical Provider 04/24/20 Wendy Ariza APRN BREEDING TECHNICIAN [address] [place] [phone] Assigned PCP 05/15/20 11/03/21 [place] [address] [place], [place] [id number] Assigned PCP 03/24/22 06/01/22 [place] [address] [place] [address] Assigned PCP 11/04/21 03/16/22 Wendy Ariza APRN BREEDING TECHNICIAN [address] [place] [phone] Assigned PCP 06/02/22 01/25/23 [place] [address] [place] [address] Assigned PCP 01/26/23 10/28/23 documented as of this encounter
--- OUTSIDE RECORDS SUMMARY | 2024-09-25 00:58 | XMS_ITS | Encounter Summary ---
Author Organization [place] Address [facility]ly [facility], later [facility] [place] [address] Care Team Providers Care Audit Practice Intern Name Role Phone Jeannie Almonte PA-C Primary Care Provid er Jeannie Almonte PA-C Unavailable + [phone] Leslie James MD Unavailable [phone] Angelina Gutierrez PA-C Primary Care Provider [phone] Angelina Gutierrez PA-C Primary Care Provider [phone] Wendy Ariza APRN, CNP Unavailable Wendy Ariza APRN, CNP Primary Care Provider + Coming Lauren Granados MD Unavailable [phone]- [phone] Coming Lauren Granados MD Unavailable [phone] Wendy Ariza APRN, CNP Unavailable [phone] Coming Lauren Granados MD Unavailable [phone]- [phone] Reason for Visit * Reason Onset Date Comments Pt. Information/instruction 11/26/2015 Encounter Details Date Type Department Care Team (Late st Contact Info) Description 11/26/2015 MyC Medical Advice [facility] [address] [address] [place] [phone] Jeannie Almonte PA-C [address] [address] Pt. 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 documented in this encounter Plan of Treatment Not on file documented as of this encounter Visit Diagnoses Not on filedocumented in this encounter Additional Health Concerns Infection Onset Date Last Indicated Resolved Time Rule Out COVID-19 03/06/2020 03/06/2020 03/09/2020 10:31 AM CONTRACT MODELER COVID-19 03/06/2020 03/06/2020 03/27/2020 11:4 1 PM CONTRACT MODELER documented as of this encounter Care Teams Audit Practice Intern Relationship Specialty Start Date End Date Jeannie Almonte PA-C [address] , [facility] [address] [place] [address] PCP - General Physician Lugger 11/25/15 05/10/20 Angelina Gutierrez PA-C [address] [place] [address] PCP - General Family Medicine 05/11/20 05/11/20 Angelina Gutierrez PA-C [address] [place] [address] PCP - General Family Medicine 05/12/20 07/05/20 Wendy Ariza APRN WASH OPERATOR [address] [place] [phone] PCP - General Family Medicine 07/06/20 Jeannie Almonte PA-C [address] [facility] [address] [place] [address] Assigned PCP 09/09/16 05/14/20 Leslie James MD [facility], [facility] [address] [place] [address] Assigned Surgical Provider 04/24/20 11/24/21 Wendy Ariza APRN WASH OPERATOR [address] [place] [phone] Assigned PCP 05/15/20 11/03/21 [place] [address] [place] [address] Assigned PCP 03/24/22 06/01/22 [place] [address] [place] [address] Assigned PCP 11/04/21 03/16/22 Wendy Ariza APRN WASH OPERATOR [address] [place] [address] Assigned PCP 06/02/22 01/25/23 [place] [address] [place] [address] Assigned PCP 01/26/23 10/28/23 documented as of this encounter
--- OUTSIDE RECORDS SUMMARY | 2024-09-25 00:58 | XMS_ITS | Encounter Summary ---
Author Organization [place] Address [facility] [place] [address] Care Team Providers Care Autocad Designer Name Role Phone Jeannie Almonte PA-C Primary Care Provid er Jeannie Almonte PA-C Unavailable + [phone] Leslie James MD Unavailable [phone] Angelina Gutierrez PA-C Primary Care Provider [phone] Angelina Gutierrez PA-C Primary Care Provider [phone] Wendy Ariza APRN, CNP Unavailable Wendy Ariza APRN, CNP Primary Care Provider + Coming Lauren Granados MD Unavailable [phone] Coming Lauren Granados MD Unavailable [phone] Wendy Ariza APRN, CNP Unavailable Coming Lauren Granados MD Unavailable [phone] Reason for Visit * Reason Onset Date Comments Results 11/28/2015 Encounter Details Date Type Department Care Team (Late st Contact Info) Description 11/28/2015 MyC Medical Advice [facility] [address] [place] [phone] Jeannie Almonte PA-C [address] [address] Results Social History Tobacco Use Types Packs/Day Years Used Date Smoking Tobacco: Never Smokeless Tobacco: Never Alcohol Use Standard Drinks/Week Comments Yes 2 (1 standard drink = 0.6 oz pur e alcohol) 2-3 beers weekly Sex and Gender Information Value Date Recorded Sex Assigned at Male 12/15/2018 8:12 AM CDT Legal Sex Male 3:31 AM RISK SPECIALIST Gender Identity Male 12/15/2018 8:12 AM CDT Sexual Orientation Straight 12/15/2018 8: 12 AM CDT 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 Not on file Not on file documented as of this encounter Miscellaneous Notes * Telephone Encounter - Elly Shafer MA - 11/28/2015 8:23 AM CDTFrom: Armand Lund To: Jeannie Castaneda PA-C Sent: 11/28/2015 8:18 AM CDT Subject: Vitamin D test result My results for the Vitamin D test were the following on 07/07/2013 Component Your Value Standard Range Vit D, 25-Hydroxy 21 ng/mL 30-96 ng/mL documented in this encounter Plan of Treatment Not on file documented as of this encounter Visit Diagnoses Not on filedocumented in this encounter Additional Health Concerns Infection Onset Date Last Indicated Resolved Time Rule Out COVID-19 03/06/2020 03/06/2020 03/09/2020 10:31 AM RISK SPECIALIST COVID-19 03/06/2020 03/06/2020 03/27/2020 11:4 1 PM RISK SPECIALIST documented as of this encounter Care Teams Autocad Designer Relationship Specialty Start Date End Date Jeannie Almonte PA-C [address] [address] PCP - General Physician Energy Control Officer 8/19/16 2/2/21 Angelina Gutierrez PA-C [address] [place] [address] PCP - General Family Medicine 05/11/20 05/11/20 Angelina Gutierrez PA-C [address] [place] [address] PCP - General Family Medicine 05/12/20 07/05/20 Wendy Ariza APRN I&C TECHNICIAN [address] [place] [phone] PCP - General Family Medicine 07/06/20 Jeannie Almonte PA-C [address] [facility] [address] [place] [address] Assigned PCP 09/09/16 05/14/20 Leslie James MD [facility], [place] [address] [facility] [address] [place] [address] Assigned Surgical Provider 04/24/20 11/24/21 Wendy Ariza APRN I&C TECHNICIAN [address] [place] [phone] Assigned PCP 05/15/20 11/03/21 [place] [address] [place] [address] Assigned PCP 03/24/22 06/01/22 [place] [address] [place] [address] Assigned PCP 11/04/21 03/16/22 Wendy Ariza APRN [facility] [address] [place] [address] Assigned PCP 06/02/22 01/25/23 [place] [address] [place] [address] Assigned PCP 01/26/23 10/28/23 documented as of this encounter
--- OUTSIDE RECORDS SUMMARY | 2024-09-25 00:58 | XMS_ITS | Encounter Summary ---
Author Organization [place] Address [facility] [place] [address] Care Team Providers Care Lab Head Name Role Phone Wendy Ariza APRN PULVERIZER TENDER Primary Care Provider + Wendy Ariza APRN PULVERIZER TENDER Unavailable Coming July Chelita PAEZ Unavailable [phone] Encounter Details Date Type Department Care Team (Late st Contact Info) Description 07/09/2022 MyC Medical Advice [address] [phone] Iveth Mckeon CMA Social History Tobacco Use Types Packs/Day Years [...] AM CDT Legal Sex Male 3:31 AM ROTATING EQUIPMENT SPECIALIST Gender Identity Male 12/15/2018 8:12 AM CDT Sexual Orientation Straight 12/15/2018 8: 12 AM CDT 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
--- OUTSIDE RECORDS SUMMARY | 2024-09-25 00:58 | XMS_ITS | Clinical Summary ---
Author Organization [place] Address [address] [facility] [place] [address] Care Team Providers Care Burrer Hand Name Role Phone Wendy Ariza APRN CONVERTING SUPERVISOR Primary Care Provider + Allergies Active Allergy Reactions Criticality Noted Date Comments Penicillins Swelling 09/07/2004 swelling of throat Medications pantoprazole (PROTONIX) 40 MG EC tablet Take 1 tablet twice daily 1 11/06/2018 Active acetaminophen (TYLENOL) 500 MG tabletIndicatio ns:Thyroid nodule Take 2 tablets (1,000 mg) by mouth every 6 hours as needed for other (mild pain) 05/11/2020 Active ibuprofen (ADVIL/MOTRIN) 200 MG tabletIndicatio ns:Thyroid nodule Take 3 tablets (600 mg) by mouth every 6 hours as needed for pain (mild) 05/11/2020 Active cyclobenzaprine (FLEXERIL) 10 MG tabletIndicatio ns:Pulled muscle Take 1 tablet (10 mg) by mouth 3 times daily as needed for muscle spasms 30 tablet 1 10/06/2020 Active Active Problems Problem Noted Date Diagnosed Date Thyroid nodule 04/20/2020 Overview (04/20/2020): Added automatically from request for surgery [id number] Testicular mass 07/24/2016 Overview (07/24/2016): right testicle. newly identified. approximately 1 cm diameter Urinary symptom or sign 07/24/2016 Overview (07/24/2016): occasional leakage ACP (advance care planning) 02/25/2015 Overview (02/25/2015): Advance Care Planning 02/25/2015: ACP Review and Resources Provided: Reviewed chart for advance care plan. Armand Elaine Bencharitypremalec has no plan or code status on file. Discussed available resources and provided with information. Confirmed code status reflects current choices pending further ACP discussions. Confirmed/documented legally designated decision maker(s). Added by Lucia Sebastian Disorder of bursae and tendons in shoulder regio n 03/22/2005 Overview (01/06/2015): Problem list name updated by automated process. Provider to review Pain in joint, lower leg 03/22/2005 Esophageal reflux 09/07/2004 Resolved Problems Problem Noted Date Diagnosed Date Resolved Date Health Senior Living 02/25/2015 09/23/2023 Overview (02/25/2015): Rotator cuff (capsule) sprain 04/15/2007 06/20/2007 Other postprocedural status(V45.89) 04/15/2007 06/20/2007 Immunizations Immunization Administration Dates Next Due COVID-19 Monovalent 18+ (Moderna) 07/01/2020, Influenza Vaccine 65+ (Fluzone HD) 03/29/2020 TDAP (Adacel,Boostrix) 04/08/2011 Family History Medical History Relation Comments Diabetes Father Thyroid Disease Mother unknown, but not cancer Depression Sister Thyroid Disease Sister Anesthesia Reaction No family hx of Anxiety Disorder No family hx of Asthma No family hx of Breast Cancer No family hx of Cerebrovascular Disease No family hx of Colon Cancer No family hx of Coronary Artery Disease No family hx of Genetic Disorder No family hx of Hyperlipidemia No family hx of Hypertension No family hx of Obesity No family hx of Osteoporosis No family hx of Other Cancer No family hx of Prostate Cancer No family hx of Substance Abuse No family hx of Relation Status Comments Brother Alive He has 2 brother s Daughter 1 Alive Daughter 2 Alive Father Maternal Grandfather Maternal Grandmother Mother (Age 61) emphysema - sm oker Other Alive He has 8 grandki ds Paternal Grandfather Paternal Grandmother Sister (Age 49) pneumonia Son 1 Alive Son 2 Alive Social History Tobacco Use Types Packs/Day Years Used Date Smoking Tobacco: Never Smokeless Tobacco: Never Tobacco Cessation:Counseling Given: Yes Alcohol Use Standard Drinks/Week Comments Yes 2 [...] Answer Date Recorded PHQ-2 Score 1 05/05/2020 Adolescent Education Answer Date Record ed Getting School Help Needed Not on file 01/07 Sex and Gender Information Value Date Recorded Sex Assigned at Male 12/15/2018 8:12 AM CDT Legal Sex Male 3:31 AM COMMERCIAL REAL ESTATE BROKER Gender Identity Male 12/15/2018 8:12 AM CDT Sexual Orientation Straight 12/15/2018 8: 12 AM CDT 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 Not on file Not on file Last Filed Vital Signs Vital Sign Reading Time Taken Comments Blood Pressure 137/88 09/12/2020 4:33 PM CDT Pulse 91 09/12/2020 4:33 PM CDT Temperature 37.1 C (98.7 F) 09/12/2020 4:33 PM CDT Respiratory Rate 16 05/24/2020 1:28 PM COMMERCIAL REAL ESTATE BROKER Oxygen Saturation 97% 09/12/2020 4:33 PM CDT Inhaled Oxygen Concentration - - Weight 97.5 kg (215 lb) 09/12/2020 4:33 PM CDT Height 177.8 cm (5' 10) 05/24/2020 1:28 PM COMMERCIAL REAL ESTATE BROKER Body Mass Index 30.85 05/24/2020 1:28 PM COMMERCIAL REAL ESTATE BROKER Plan of Treatment Health Maintenance Due Date Last Done Comments CT COLONOGRAPHY 1954 FIT 1954 FLEX SIG 1954 sDNA (Cologuard) 1954 PNEUMOCOCCAL VACCINE 50+ YEARS (1 of 1 - PCV) 2004 ZOSTER VACCINE (1 of 2) 2004 DTAP/TDAP/TD VACCINE (2 - Td or Tdap) 04/08/2021 04/08/2011 ANNUAL REVIEW OF HM ORDERS 04/27/2021 04/27/2020 FALL RISK ASSESSMENT 05/05/2021 05/05/2020, 04/27/2020, 05/28/2019, Additional history exists COLONOSCOPY 01/28/2023 01/28/2018 COLORECTAL CANCER SCREENING 01/28/2023 DIABETES SCREENING 05/05/2023 05/05/2020, 0 04/27/2020, 12/17/2018, Additional history exists COVID-19 VACCINE ( season) 2023 07/01/2020, 06/03/2020 PHQ-2 (once per calendar year) 2024 05/05/2020, 04/27/2020, 05/28/2019, Additional history exists INFLUENZA VACCINE (Season Ended) 2024 03/29/2020, 12/17/2018 (Declined) ADVANCE CARE PLANNING 05/05/2025 05/05/2020, 021 LIPID 05/05/2025 05/05/2020, 0704/2017, 07/24/2016, Additional history exists RSV VACCINE (1 - 1-dose 75+ series) 2029 HEPATITIS C SCREENING Completed 02/25/2015 HPV VACCINE Aged Out No longer eligi ble based on patient's age to complete this topic MENINGITIS VACCINE Aged Out No longer eligible based on patient's age to complete this topic Procedures Procedure Name Priority Date/Time Associated Diagnosis Comments HEMOGLOBIN A1C Routine 05/05/2020 9:49 AM COMMERCIAL REAL ESTATE BROKER Blood glucose elevated LIPID REFLEX TO DIRECT LDL PANEL Routine 05/05/2020 9:49 AM COMMERCIAL REAL ESTATE BROKER Lipid screening COLONOSCOPY - HIM SCAN Routine 01/28/2018 HEPATITIS C ANTIBODY Routine 02/25/2015 10:36 AM COMMERCIAL REAL ESTATE BROKER Encounter for general adult medical examination without abnormal findings from Last 3 Months or Most Recently Relevant to Health Maintenance Results * (ABNORMAL) Lipid panel reflex to direct LDL Fasting (05/05/2020 9:49 AM COMMERCIAL REAL ESTATE BROKER) Cholesterol 191 <200 mg/dL 05/06/2020 8:11 AM COMMERCIAL REAL ESTATE BROKER [facility] Triglycerides 149 <150 mg/dL 05/06/2020 8:13 AM COMMERCIAL REAL ESTATE BROKER [facility] Comment:Fasting specimen HDL Cholesterol 53 >39 mg/dL 8:21 AM COMMERCIAL REAL ESTATE BROKER [facility] LDL Cholesterol Calculated 108(H) <100 mg/dL 05/06/2020 8:21 AM COMMERCIAL REAL ESTATE BROKER [facility] Comment: Above desirable: 100-129 mg/dl Borderline High: 130-159 mg/dL High: 160-189 mg/dL Very high: >189 mg/dl Non HDL Cholesterol 138(H) <130 mg/dL 05/06/2020 8:21 AM [facility] Comment: Above Desirable: 130-159 mg/dl Borderline high: 160-189 mg/dl High: 190-219 mg/dl Very high: >219 mg/dl Blood specimen (specimen) 05/05/2020 9:49 AM COMMERCIAL REAL ESTATE BROKER 05/05/2020 9:51 AM COMMERCIAL REAL ESTATE BROKER Wendy Ariza APRN CONVERTING SUPERVISOR LAB - BLOOD ORDERABLES F inal Result [facility] [address] [place] [address] * (ABNORMAL) Hemoglobin A1c (05/05/2020 9:49 AM COMMERCIAL REAL ESTATE BROKER) Hemoglobin A1C 6.0(H) 0 - 5.6 % 05/05/2020 10:13 AM [facility] Comment: Normal <5.7% Prediabetes 5.7-6.4% Diabetes 6.5% or higher - adopted from ADA consensus guidelines. Blood specimen (specimen) 05/05/2020 9:49 AM COMMERCIAL REAL ESTATE BROKER 05/05/2020 9:51 AM COMMERCIAL REAL ESTATE BROKER us Wendy Annita JOHNSON CONVERTING SUPERVISOR LAB - BLOOD ORDERABLES F inal Result [facility] [address] [place] [address] * Colonoscopy - HIM Scan (01/28/2018) us Provider Outside PROCEDURES Final Result * Hepatits C antibody ([facility]) (02/25/2015 10:36 AM COMMERCIAL REAL ESTATE BROKER) HCV Antibody NON-REACTI VE NON-REACTI VE [facility] SIGNAL TO CUT OFF - [facility] 0.05 <1.00 [facility] Blood specimen (specimen) 02/25/2015 10:36 AM COMMERCIAL REAL ESTATE BROKER 02/26/2015 2:55 AM COMMERCIAL REAL ESTATE BROKER Narrative Resulting Agency Comment Performing Organization Information: CB [facility] [address] [place] [address] Emmanuel Charles M.D. Mpho Karthik Jade MD LAB - BLOOD ORDERABLES Fi nal Result [facility] [address] [place] [address] from Last 3 Months or Most Recently Relevant to Health Maintenance Insurance [employer] COMMERCIAL Care Teams Burrer Hand Relationship Specialty Start Date End Date Wendy Ariza APRN CNP PCP - General Family Medicine 07/06/20
--- OUTSIDE RECORDS SUMMARY | 2024-09-25 00:58 | XMS_ITS | Encounter Summary ---
Author Organization [place] Address [address] [place] [address]. [place] [address] Care Team Providers Care Waste Minimization Technician Name Role Phone Leslie James MD Unavailable Wendy Ariza APRN PIPELINES LABORER Unavailable Wendy Ariza APRN PIPELINES LABORER Primary Care Provider + Coming Lauren Granados MD Unavailable [phone] Coming Lauren Granados MD Unavailable [phone] Wendy Ariza APRN PIPELINES LABORER Unavailable [phone] Coming Lauren Granados MD Unavailable [phone]- [phone] Reason for Visit * Reason Onset Date Comments Refill Request 10/06/2020 Encounter Details Date Type Department Care Team (Late st Contact Info) Description 10/06/2020 MyC Refill [facility] [id number] [place] [phone] [place] [address] [place], [place] [phone] Refill Request Social History Tobacco Use Types [...] AM CDT Legal Sex Male 3:31 AM ADVERTISING EDITOR Gender Identity Male 12/15/2018 8:12 AM CDT Sexual Orientation Straight 12/15/2018 8: 12 AM CDT 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 No / Unsure 09/12/2020 4:11 PM CDT documented as of this encounter Miscellaneous Notes * Telephone Encounter - Tracey Ramires RN - 10/06/2020 12:16 PM CDT Routing refill request to provider for review/approval because: Drug not on the [facility] refill protocol Tracey Ramires RN [facility] -- Triage Nurse documented in this encounter Plan of Treatment Not on file documented as of this encounter Visit Diagnoses Diagnosis Pulled muscle Unspecified site of sprain and strain documented in this encounter Care Teams Waste Minimization Technician Relationship Specialty Start Date End Date Wendy Ariza APRN CNP [address] [place] [phone] PCP - General Family Medicine 07/06/20 Leslie James MD [facility] [address] [place] [address] Assigned Surgical Provider 04/24/20 Wendy Ariza APRN PIPELINES LABORER [address] [place] [phone] Assigned PCP 05/15/20 11/03/21 [place] [address] [place], [place] [id number] Assigned PCP 03/24/22 06/01/22 [place] [address] [place], [place] [id number] Assigned PCP 11/04/21 03/16/22 Wendy Ariza APRN PIPELINES LABORER [address] [place] [phone] Assigned PCP 06/02/22 01/25/23 [place] [address] [place], [place] [id number] Assigned PCP 01/26/23 10/28/23 documented as of this encounter
== END 2024-09-24 09:54 | disposition home or self-care (01) ==
LOC: STRESS 09:54
PROVIDERS: PCP Family Medicine; Visit Provider Family Medicine
DX: R06.09 Other forms of dyspnea (principal)
CPT/HCPCS: 93016; 93017